=== PATIENT | male | born 1950 | race Caucasian/White ===

== ENCOUNTER → 2019-08-15 19:55 | Outpatient (CLI) | payer SELFPAY | END | disposition home or self-care (01) | LOC: D.LABREF 19:55 | PROVIDERS: ATTEND Emergency Medicine | DX: D49.89 Neoplasm of unspecified behavior of other specified sites (principal) ==

== ENCOUNTER → 2019-10-04 21:02 | Outpatient (CLI) | payer SELFPAY | END | disposition home or self-care (01) | LOC: D.LABREF 21:02 | PROVIDERS: ATTEND Emergency Medicine | DX: I10 Essential (primary) hypertension (principal) ==